=== PATIENT | female | born 1940 | race Caucasian/White ===

== ENCOUNTER 2017-07-04 08:53 | Day surgery (SDC) | payer MEDICARE, BC ==
[~2017-07-04] VITALS: Ht 157.5 cm; Wt 66.7 kg
[~2017-07-04 08:53] MED LIST: HYDCHL12.5 PO; KETO15TC; LISI20 PO; POLYETHYLENE G255 GM; YUVAFEM10 MCG VG
[2017-07-04] MEDS ORDERED: ESCI20 PO (09:24)
[2017-07-04] MEDS ORDERED: MERIBIN5 MG PO (09:25)
[2017-07-04] MEDS ORDERED: CALCA400CH PO (09:26)
[2017-07-04] MEDS ORDERED: CHOL10002 PO (09:26)
== END 2017-07-04 10:51 | disposition home or self-care (01) ==
LOC: ORSCSDS 08:53
PROVIDERS: Ophthalmology
PROC: 08RJ3JZ Replacement of Right Lens with Synthetic Substitute, Percutaneous Approach (ICD-10-PCS; principal; 2017-07-04 10:30)
DX: H25.11 Age-related nuclear cataract, right eye (principal); I10 Essential (primary) hypertension; J44.9 Chronic obstructive pulmonary disease, unspecified; Z79.899 Other long term (current) drug therapy
CPT/HCPCS: J2250; J3301; J7040; V2632

== ENCOUNTER → 2018-09-12 | Outpatient (CLI) | payer MEDICARE, BC ==
[~2018-09-12] MED LIST changes: +CALCA400CH PO; +CHOL10002 PO; +ESCI20 PO; +MERIBIN5 MG PO
[2018-09-12 17:22] LABS: Anion Gap 12 mmol/L (6-16); Blood Urea Nitrogen 21 mg/dL (8-24); Bun/Creatinine Ratio 23.9 (12.0-20.0); CO2, Blood 24 mmol/L (21-32); Calcium, Blood 8.9 mg/dL (8.5-10.1); Chloride, Blood 98 mmol/L (98-108); Creatinine, Blood 0.88 mg/dL (0.40-1.00); Glomerular Filtration Rate >60 (60-); Glucose, Blood 130 mg/dL (70-99); Hematocrit 41.8 % (33.0-51.0); Hemoglobin 14.5 g/dL (11.5-16.0); Mean Corpuscular HGB 29.7 pg (26.0-34.0); Mean Corpuscular HGB Conc 34.7 g/dL (31.5-36.5); Mean Corpuscular Volume 86 fL (80-100); Mean Platelet Volume 9.7 fL (9.1-12.4); Platelet Count 185 K/mm3 (150-400); Potassium, Blood 3.4 mmol/L (3.5-5.5); RDW Standard Deviation 40.3 fL (35.1-46.3); Red Blood Cell Count 4.88 M/mm3 (3.80-5.20); Sodium, Blood 134 mmol/L (136-145); White Blood Cell Count 7.99 K/mm3 (4.00-11.30)
[2018-09-12 18:00] LABS: BAND PERCENT MAN 16 % (0-8); BASOPHILS PERCENT MAN 0 % (0-2); EOSINOPHILS PERCENT MAN 0 % (0-6); LYMPHOCYTES ABSOLUTE MAN 0.47 K/mm3 (0.84-5.20); LYMPHOCYTES PERCENT MAN 6 % (21-46); METAMYELOCYTE ABSOLUTE MAN 0.07 K/mm3 (0.00-0.00); METAMYELOCYTE PERCENT MAN 1 % (0-0); MONOCYTES ABSOLUTE MAN 0.31 K/mm3 (0.16-1.47); MONOCYTES PERCENT MAN 4 % (4-13); NEUTROPHILS ABSOLUTE MAN 7.11 K/mm3 (1.96-9.15); SEG NEUTROPHILS PERCENT MAN 73 % (41-73); TOTAL CELLS COUNTED 100
== END | disposition home or self-care (01) ==
LOC: LAB EV 17:13 → LAB SHORT 17:13
PROVIDERS: Physician Assistant Surgical
DX: R11.2 Nausea with vomiting, unspecified (principal)
CPT/HCPCS: 80048; 85025

== ENCOUNTER → 2021-05-21 | Outpatient (CLI) | payer MEDICARE, BC ==
[2021-05-21 15:53] LABS: BASOPHILS ABSOLUTE AUTO 0.01 K/mm3 (0.00-0.23); BASOPHILS PERCENT AUTO 0 % (0-2); EOSINOPHILS ABSOLUTE AUTO 0.07 K/mm3 (0.00-0.68); EOSINOPHILS PERCENT AUTO 1 % (0-6); Hematocrit 42.4 % (33.0-51.0); Hemoglobin 14.7 g/dL (11.5-16.0); IMMATURE GRAN ABSOLUTE AUTO 0.01 K/mm3 (0.00-0.10); IMMATURE GRAN PERCENT AUTO 0 % (0-1); LYMPHOCYTES ABSOLUTE AUTO 1.63 K/mm3 (0.84-5.20); LYMPHOCYTES PERCENT AUTO 31 % (21-46); MONOCYTES ABSOLUTE AUTO 0.32 K/mm3 (0.16-1.47); MONOCYTES PERCENT AUTO 6 % (4-13); Mean Corpuscular HGB 29.8 pg (26.0-34.0); Mean Corpuscular HGB Conc 34.7 g/dL (31.5-36.5); Mean Corpuscular Volume 86 fL (80-100); Mean Platelet Volume 9.1 fL (9.1-12.4); NEUTROPHILS PERCENT AUTO 61 % (41-73); Platelet Count 177 K/mm3 (150-400); RDW Coefficient Variation 12.5 % (11.7-14.2); RDW Standard Deviation 38.8 fL (35.1-46.3); Red Blood Cell Count 4.94 M/mm3 (3.80-5.20); White Blood Cell Count 5.24 K/mm3 (4.00-11.30)
[2021-05-21 15:54] LABS: Source, Urine Clean Catch
[2021-05-21 16:00] LABS: White Blood Cells, Urine 0-2 /hpf (0-5)
[2021-05-21 16:01] LABS: Bacteria Few /hpf; Squamous Epithelial Cells Mod /hpf (Few)
[2021-05-21 16:02] LABS: Alanine Aminotransfer (ALT/SGP 28 U/L (12-78); Albumin, Blood 4.3 g/dL (3.4-5.0); Albumin/Globulin Ratio 1.3 (0.8-1.8); Alk Phos 77 U/L (40-126); Amylase, Blood 32 U/L (25-115); Anion Gap 10 mmol/L (6-16); Aspartate Aminotrans (AST/SGOT 21 U/L (12-37); Bilirubin, Total 1.1 mg/dL (0.1-1.0); Blood Urea Nitrogen 12 mg/dL (8-24); Bun/Creatinine Ratio 17.6 (12.0-20.0); CO2, Blood 27 mmol/L (21-32); Calcium, Blood 9.3 mg/dL (8.5-10.1); Chloride, Blood 100 mmol/L (98-108); Creatinine, Blood 0.68 mg/dL (0.40-1.00); Globulin, Blood 3.3 g/dL (2.2-4.0); Glomerular Filtration Rate >60 (60-); Glucose, Blood 99 mg/dL (70-99); Potassium, Blood 3.7 mmol/L (3.5-5.5); Sodium, Blood 137 mmol/L (136-145); Total Protein, Blood 7.6 g/dL (6.4-8.2)
== END ==
LOC: LAB SHORT 15:46
PROVIDERS: General Practice
DX: R10.30 Lower abdominal pain, unspecified (principal); R31.29 Other microscopic hematuria
CPT/HCPCS: 80053; 81015; 82150; 85025; 87086

== ENCOUNTER → 2023-02-27 | Outpatient (CLI) | payer MEDICARE, BC | LOC: LAB 08:08 → LAB SHORT 08:08 | DX: N90.7 Vulvar cyst (principal) | CPT/HCPCS: 88304 ==